=== PATIENT | female | born 1995 | race Caucasian/White ===

== ENCOUNTER 2018-11-13 14:40 | Emergency (ER) | payer SELFPAY ==
[2018-11-13] MEDS ORDERED: Morphine 4 MG/ML VIAL ONE (14:59)
[2018-11-13] MEDS ORDERED: Ondansetron ODT 4 MG TAB ONE (15:00)
[2018-11-13 16:00] LABS: BHCG - Serum Negative (NEGATIVE); Pregs Control Background? CLEAR/WHITE (CLR/WHITE); Pregs Control Bar Appear? YES (CONTROL BAR)
[2018-11-13] MEDS ORDERED: Dexamethasone 4 mg/ml Vial ONE (17:07)
--- NOTE | 2018-11-13 17:08 | CT ---
CT CERVICAL SPINE: History: Fall with severe back and neck pain. Technique: Axial images are obtained with coronal and sagittal reconstructions. FINDINGS: CT images demonstrate no evidence of acute cervical spine fractures. Vertebral bodies and posterior e lements are unremarkable. IMPRESSION: Normal CT cervical spine. POS: [facility]
--- NOTE | 2018-11-13 17:10 | CT ---
CT LUMBAR SPINE: History: Back after fall. Patient states that she hurts so badly that she cannot walk. FINDINGS: Axial images were obtained through the lumbar spine. No evidence of acute lumbar spine fractures or b nano lesions seen. Some mild bilateral SI joint degenerative changes. IMPRESSION: No evidence of acute lumbar spine fracture or subluxations. POS: [facility]
--- NOTE | 2018-11-13 17:13 | CT ---
CT THORACIC SPINE: History: 23-year-old with history of fall backwards with back pain. FINDINGS: Axial images were obtained with radford and sagittal reconstructions. The patient has moderate lower t horacic dextroscoliosis. No evidence of hemivertebra is seen. No significant evidence of thoracic spine fracture seen. The vertebral bodies are unremarkable. Facet s and posterior elements are unremarkable. IMPRESSION: Dextroscoliosis. No evidence of acute thoracic spine abnormality seen. POS: [facility]
[2018-11-13] MEDS ORDERED: Lidocaine 5% Patch TD SCH (17:15)
[2018-11-14] MEDS ORDERED: Lidocaine Patch Removal 1 EACH TOP SCH (05:00)
== END 2018-11-13 17:32 | disposition home or self-care (01) ==
LOC: ERS 14:40
DX: M54.9 Dorsalgia, unspecified (principal); F17.210 Nicotine dependence, cigarettes, uncomplicated; W01.0XXA Fall on same level from slipping, tripping and stumbling without subsequent striking against object, initial encounter
CPT/HCPCS: 36415; 72125; 72128; 72131; 84703; 96372; J1100; J2270; Q0162